=== PATIENT | female | born 1970 | race Caucasian/White ===

== ENCOUNTER 2021-10-23 08:12 | Emergency (ER) | payer SELFPAY ==
[~2021-10-23] VITALS: Ht 160 cm; Wt 54.4 kg
[2021-10-23 08:15] VITALS: BP 124/81
--- NOTE | 2021-10-23 09:00 | NUR ---
pt ambulated to bedside
--- NOTE | 2021-10-23 09:05 | NUR ---
large engine assembler called. large engine assembler Miller #[id number].
--- NOTE | 2021-10-23 09:15 | NUR ---
URINE SAMPLE WALKED TO LAB
--- NOTE | 2021-10-23 09:29 | NUR ---
xray at bedside
--- NOTE | 2021-10-23 10:11 | NUR ---
51/F C/O LUQ PAIN RADIATING TO HER BACK AND EPISODES OF DIARRHEA X1 MONTH. STATES BEING SEEN AT URGENT CARE WITH NO RELIEF. CHIEF [employer]PART[facility] LOLLY #[id number]. THE PT STATES HAS HAD PIAN FROM HER R SIDE RIB AREA THAT RADIATES TO THE BACK. SHE HAS HAD A HEADACHE AND FEVER AT HOME BUT NO FEVER PRESENT NOW. PT HAS HAD N/V/AND DIAHRREA. COMPLAINS OF NO CHEST PAIN OR SOB. PT RESTING IN BED. PMH: DENIES NKA
[2021-10-23 10:36] LABS: BASOPHILS % (AUTO) 0.5 % (0.0-2.0); EOSINOPHILS # (AUTO) 0.1 K/uL (0-0.4); EOSINOPHILS % (AUTO) 1.2 % (0.0-4.0); HEMATOCRIT 37.9 % (36-48); HEMOGLOBIN 12.3 g/dL (12.0-16.0); LYMPHOCYTES # (AUTO) 1.4 K/uL (2.5-16.5); LYMPHOCYTES % (AUTO) 22.9 % (20.5-51.1); MEAN CORPUSCULAR HEMOGLOBIN 26 pg (27-31); MEAN CORPUSCULAR HGB CONC 32 g/dL (33-37); MEAN CORPUSCULAR VOLUME 81.7 fL (80-94); MONOCYTES # (AUTO) 0.4 K/uL (0.8-1.0); MONOCYTES % (AUTO) 6.8 % (1.7-9.3); NEUTROPHILS # (AUTO) 4.2 K/uL (1.8-7.7); NEUTROPHILS % (AUTO) 68.6 % (42.2-75.2); PLATELET COUNT (AUTO) 274 K/uL (140-450); RED BLOOD CELL COUNT(AUTO) 4.64 MIL/uL (4.20-5.40); RED CELL DISTRIBUTION WIDTH 14.6 % (11.6-13.7); WHITE BLOOD COUNT (AUTO) 6.1 K/uL (4.8-10.8)
[2021-10-23 11:04] LABS: APPEARANCE,URINE CLEAR (CLEAR); BILIRUBIN,URINE NEGATIVE (NEGATIVE); BLOOD, URINE NEGATIVE (NEGATIVE); COLOR,URINE DARK YELLOW (YELLOW); LEUKOCYTE ESTERASE ,URINE NEGATIVE (NEGATIVE); NITRITE, URINE NEGATIVE (NEGATIVE); UGLUCOSE NEGATIVE (NEGATIVE)
[2021-10-23 11:53] LABS: ALBUMIN 3.6 g/dL (3.4-5.0); ANION GAP 13.7 (8-16); ASPARTATE AMINOTRANSFERASE 25 U/L (15-37); CARBON DIOXIDE 25.1 mmol/L (21-32); CHLORIDE 105 mmol/L (98-107); CREATININE 0.7 mg/dL (0.6-1.3); GFR ARICAN-AMERICAN 114 mL/min (>90); GLUCOSE 91 mg/dL (74-106); POTASSIUM 3.8 mmol/L (3.5-5.1); SODIUM SERUM 140 mmol/L (136-145); TOTAL BILIRUBIN 0.4 mg/dL (0.0-1.0); UREA NITROGEN, BLOOD 12 mg/dL (7-18)
[2021-10-23] MEDS ORDERED: KETOROLAC 30 MG/ML VIAL IVP ONE (12:35)
[2021-10-23] MEDS ORDERED: MORPHINE SULFATE 4 MG/ML SYR IVP ONE (12:35)
[2021-10-23 13:07] LABS: LIPASE 184 U/L (73-393)
[2021-10-23 14:28] VITALS: BP 105/74
--- NOTE | 2021-10-23 14:29 | NUR ---
Patient discharged with v/s stable. Written and verbal after care instructions given and explained. Patient verbalized understanding. Ambulatory with steady gait. All questions addressed prior to discharge. Advised to follow up with PMD.
== END 2021-10-23 14:28 | disposition home or self-care (01) ==
LOC: MED 08:12
DX: R10.11 Right upper quadrant pain (principal); Z90.49 Acquired absence of other specified parts of digestive tract
CPT/HCPCS: 36415; 71045; 80053; 81003; 81025; 83690; 84484; 84703; 85025; 93005; 96374; 96375; 99285; J1885; J2270